=== PATIENT | female | born 1985 | race African-American/Black ===

== ENCOUNTER 2019-11-23 14:21 | Emergency (ER) | payer BC, OTHER ==
[~2019-11-23] VITALS: Ht 162.6 cm; Wt 77.0 kg
[~2019-11-23 14:21] MED LIST: CITA10TA16; hydrocodone; naproxen; zantac
[2019-11-23] MEDS ORDERED: IBUPROFEN 600MG TABLET PO ONE (15:45)
[2019-11-23 16:30] VITALS: BP 114/63
[2019-11-23 16:31] LABS: EOSINOPHILS % 2.3 % (0.0-5.0); HEMATOCRIT. 37.1 % (36.0-48.0); HEMOGLOBIN. 12.2 g/dL (12.0-16.0); LYMPHOCYTES % 28.6 % (20.0-50.0); MEAN CORPUSCULAR HEMOGLOBIN 28.4 pg (28.0-32.0); MEAN CORPUSCULAR VOLUME 86.4 fL (81.0-99.0); MEAN PLATELET VOLUME 8.9 fl (7.4-10.4); NEUTROPHILS % 59.1 % (40.0-76.0); PLATELET 281 x1000/uL (130-400); RED BLOOD CELL COUNT 4.29 mill/uL (4.2-5.4); RED CELL DISTRIBUTION WIDTH 14.2 % (11.6-14.6)
[2019-11-23 16:38] LABS: CHLORIDE 112 mEq/L (98-107)
[2019-11-23 16:48] LABS: B-HCG QUANTITATIVE < 1 mIU/mL (<3)
== END 2019-11-23 18:33 | disposition home or self-care (01) ==
LOC: ER 14:21
DX: O03.9 Complete or unspecified spontaneous abortion without complication (principal)
CPT/HCPCS: 36415; 76830; 76856; 80053; 84702; 85025; 86850; 86900; 93005; 99285